=== PATIENT | male | born 1940 | race Caucasian/White ===

== ENCOUNTER 2019-07-14 09:16 | Day surgery (SDC) | payer MEDICARE, BC ==
[~2019-07-14 09:16] MED LIST: Lactated Ringers 1,000 ML IV SCH
[2019-07-14] MEDS ORDERED: Propofol 200 MG/20 ML SDV ONE (11:13)
[2019-07-14] MEDS ORDERED: fentaNYL 100 MCG/2 ML SDV ONE (11:14)
--- NOTE | 2019-07-15 09:15 | OR ---
PREOPERATIVE DIAGNOSIS: History of colon polyps. POSTOPERATIVE DIAGNOSIS: History of colon polyps. PROCEDURE PERFORMED: Colonoscopy with polypectomy. INDICATION: The patient is a 79-year-old male with history of colon polyps, last colonoscopy was about 4 years ago, presents for repeat colonoscopy at this time. PROCEDURE IN DETAIL: This was done in the endoscopy suite. Sedation given per Anesthesia. He was placed in left lateral position. First, a rectal exam was done, was normal. Scope was placed into the rectum and slowly advanced to the rectum, sigmoid, descending, transverse, and ascending colon until the cecum was reached. In the cecum, there was a 1 cm polyp removed by hot loop forceps, sent to pathology. The scope was then withdrawn looking at all the mucosal surfaces on the way out. Remaining exam was normal with the exception of some moderate sigmoid diverticulosis. FINAL DIAGNOSES: Sigmoid diverticulosis and polyp at the cecum. Final pathology pending. BKD: 07/14/2019 11:36:05 MODL: 07/14/2019 17:37:04 /[id number] CC: [facility]
== END 2019-07-14 12:45 | disposition home or self-care (01) ==
LOC: VM.SDS 09:16
PROVIDERS: ATTEND Surgery
DX: Z12.11 Encounter for screening for malignant neoplasm of colon (principal); D12.0 Benign neoplasm of cecum; K57.30 Diverticulosis of large intestine without perforation or abscess without bleeding; I10 Essential (primary) hypertension; E78.5 Hyperlipidemia, unspecified; E11.9 Type 2 diabetes mellitus without complications; M19.90 Unspecified osteoarthritis, unspecified site; F17.220 Nicotine dependence, chewing tobacco, uncomplicated; Z86.010 Personal history of colon polyps; Z79.84 Long term (current) use of oral hypoglycemic drugs; Z79.899 Other long term (current) drug therapy; Z79.82 Long term (current) use of aspirin
CPT/HCPCS: 00811; 45384; 82962; J2704; J3010; J7120

== ENCOUNTER 2020-03-02 12:24 | Inpatient (IN) | payer MEDICARE, BC ==
[~2020-03-02 12:24] MED LIST changes: +Acetaminophen 325 MG Tab PO PRN; -Lactated Ringers 1,000 ML IV SCH; +oxyCODONE 5 MG Tab PO PRN
[2020-03-02] MEDS ORDERED: Furosemide 40 MG Tab PO SCH (16:00)
--- NOTE | 2020-03-02 16:36 | HP ---
Admission history and physical to the swing bed unit at [facility]. CHIEF COMPLAINT: 1. Weakness. 2. Deconditioning. 3. Status post CABG x4. HISTORY OF PRESENT ILLNESS: This 79-year-old male patient was admitted to [facility] in [place] on 02/24/2020 for a diagnosis chest pain. The patient had been experiencing exertional chest pain that day with 5 to 6 episodes that lasted about 15 minutes a piece. The pain was substernal in the left chest with sharp pressure, but no radiation. The workup in the emergency room at [facility] was essentially negative; however, the patient was admitted given multiple risk factors for coronary artery disease. The patient did undergo a coronary angiogram on 02/25/2020. The heart catheterization showed multivessel coronary artery disease, NSTEMI, and high-grade lesion of the RCA. The patient was then referred for a CABG. The patient underwent a 4-vessel CABG on 02/26/[address] Travis Jacob. The patient had a graft; AGUILERA to LAD, SVG to PDA, SVG to obtuse marginal ramus branch, SVG to 1st diagonal. The patient's surgery was uneventful according to old records. The patient did well postoperatively; however, he has remained significantly weak and deconditioned, therefore swing bed was recommended. PAST MEDICAL HISTORY: 1. Type 2 diabetes without long-term use of insulin. 2. Hyperlipidemia associated with type 2 diabetes. 3. Dyslipidemia associated with type 2 diabetes. 4. Non-STEMI. 5. Coronary artery disease involving alutiiq coronary artery of alutiiq heart with angina pectoris. 6. Lumbar disk herniation with radiculopathy. 7. Impotence of organic origin. PAST SURGICAL HISTORY: 1. Back surgery. 2. Colonoscopy. 3. Cystoscopy. 4. TURP. 5. Rotator cuff repair. 6. Lumbar disk surgery. 7. Cardiac catheterization. 8. Coronary artery bypass graft. FAMILY HISTORY: Mother is secondary to Alzheimer disease. Father is secondary to cardiovascular disease. SOCIAL HISTORY: The patient does not drink alcohol. No illegal drug use. The patient has never been a smoker. The patient does use chewing tobacco. ALLERGIES: No known drug allergies. MEDICATIONS: 1. Acetaminophen 650 mg 1 tablet p.o. every 6 hours as needed. 2. Aspirin 81 mg 1 tablet p.o. daily. 3. Atorvastatin 40 mg daily. 4. Cinnamon bark 1000 mg 1 tablet p.o. daily. 5. Senna Plus 2 tablets p.o. daily. 6. Lovenox 40 mg subcu daily. 7. Furosemide 40 mg 1 tablet p.o. twice daily. 8. Metformin 1000 mg 1 tablet p.o. twice daily. 9. Lopressor 25 mg 1 tablet p.o. twice daily. 10.Multivitamin 1 tablet p.o. daily. 11.Oxycodone 5 mg 1 tablet p.o. every 6 hours as needed. 12.Protonix 40 mg 1 tablet p.o. daily. 13.Potassium chloride 20 mEq 1 tablet p.o. daily. 14.Januvia 100 mg 1 tablet p.o. daily. REVIEW OF SYSTEMS: General: Negative. Skin: Negative. Respiratory: Negative. Cardiovascular: Negative. Abdomen: Negative. Neurologic: The patient complains of being very tired and feeling weak. Otherwise, no focal neurological deficit. PHYSICAL EXAMINATION: General Presentation: The patient is alert. The patient is cooperative. The patient does not appear to be in any acute distress. Skin: Surgical incision is clean, dry, and intact; no dressing. Skin is warm and dry. Respiratory: Lungs are clear, but decreased throughout. Cardiovascular: Regular rate and rhythm, no murmur. Abdomen: Obese, bowel sounds are hypoactive x4. Abdomen is nontender. Neurological: The patient is alert. The patient is oriented to person, place, and time. No focal neurological deficit. Vital Signs: Height is 5 feet 10 inches, weight is 217 pounds. Temperature is 99.8, pulse is 77, blood pressure 132/61, respiratory rate 18, oxygen saturation 100% on room air. LABORATORY STUDIES: None. IMAGING STUDIES: None. ASSESSMENT: 1. Coronary artery disease. 2. Status post coronary artery bypass graft x4. 3. Weakness. 4. Deconditioning. 5. Type 2 diabetes without long-term use of insulin. 6. Hypertension associated with type 2 diabetes. 7. Dyslipidemia associated with type 2 diabetes. 8. Obesity. 9. Erectile dysfunction. 10.Lumbar disk disease. PLAN: The patient will be admitted to the swing bed unit at [facility] status post CABG x4 for weakness and deconditioning. The patient will be seen by Physical and Occupational Therapy. Continue with current medications without any changes. The patient is a full code 1. The patient does wish to be transferred to a higher level of care should the need arise. The patient will be on a diabetic diet. The patient will be up ad alessio. I anticipate admission at least 5 to 6 days. This patient was seen and examined by me as an [facility] provider. TB: 03/02/2020 13:06:10 MODL: 03/02/2020 16:31:40 /[id number]
[2020-03-02] MEDS ORDERED: metFORMIN 500 MG Tab PO SCH (18:00)
[2020-03-02] MEDS ORDERED: Enoxaparin 40 MG/0.4 ML Syringe SUBCUT SCH (20:00)
[2020-03-02] MEDS ORDERED: Metoprolol Tartrate 25 MG Tab PO SCH (20:00)
[2020-03-02] MEDS ORDERED: atorvaSTATin 40 MG Tab PO SCH (20:00)
[2020-03-03] MEDS ORDERED: Non-Formulary Medication 1 Each (Cinnamon Bark [Cinnamon] 1,000 MG) PO SCH (08:00)
[2020-03-03] MEDS ORDERED: Potassium Chloride 20 MEQ Tab.ER PO SCH (08:00)
[2020-03-03] MEDS ORDERED: Aspirin 81 MG Tab.EC PO SCH (08:00)
[2020-03-03] MEDS ORDERED: Pantoprazole 40 MG Tab.CR PO SCH (08:00)
[2020-03-03] MEDS ORDERED: Multivitamins with Iron/Calcium/Folic Acid/Minerals Tab PO SCH (08:00)
--- NOTE | 2020-03-03 10:15 | DISCH ---
CHIEF COMPLAINT: Left against medical advice. HISTORY OF PRESENT ILLNESS: A 79-year-old male patient was admitted yesterday to the swing bed unit for weakness and deconditioning, status post CABG x4. This provider was called at 4:45 a.m., 03/03/2020, from the nurse caring for the patient stating that the patient is attempting to leave the facility. I spoke with the patient via telephone and he stated that he is leaving because his room is too hot. Better accommodations were offered to the patient, but he refused. I did make several attempts to convince the patient to stay, but the patient declined. DISPOSITION: Left against medical advice to home. CONSULTATIONS: Physical and Occupational Therapy. DISCHARGE LABORATORY WORK: None. DISCHARGE IMAGING STUDIES: None. DISCHARGE MEDICATIONS: 1. Acetaminophen 650 mg 1 tablet p.o. every 6 hours as needed. 2. Aspirin 81 mg 1 tablet p.o. daily. 3. Atorvastatin 40 mg 1 tablet p.o. daily at bedtime. 4. Furosemide 40 mg 1 tablet p.o. twice daily. 5. Metformin 1000 mg 1 tablet p.o. twice daily. 6. Metoprolol 25 mg 1 tablet p.o. twice daily. 7. Multivitamin 1 tablet p.o. daily. 8. Cinnamon bark 1000 mg 1 tablet p.o. daily. 9. Pantoprazole 40 mg 1 tablet p.o. daily. 10.Potassium chloride 20 mEq 1 tablet p.o. daily. 11.Senna Plus 2 tabs p.o. daily. 12.Januvia 100 mg 1 tablet p.o. daily. HOSPITAL COURSE: The patient remained hemodynamically stable during his short time on swing bed. The patient did not have any chest pain or shortness of breath. The patient did not have any cough or leg swelling. No palpitations. The patient did not have any focal neurological problems. The patient did work with Physical and Occupational Therapy. REVIEW OF SYSTEMS: Unable to obtain secondary to acuity of the patient. PHYSICAL EXAMINATION: Neurological: No focal neurological deficit. The patient is alert. Psychiatric: The patient is agitated. The patient appears to have an isolated psychotic event. DISCHARGE DIAGNOSES: 1. Left against medical advice. 2. Coronary artery disease. 3. Status post CABG x4. 4. Weakness. 5. Deconditioning. 6. Type 2 diabetes without long-term use of insulin. 7. Hyperlipidemia associated with type 2 diabetes. 8. Dyslipidemia associated with type 2 diabetes. 9. Hkm-[id number]-tinievdbw myocardial infarction. 10.Lumbar disk herniation with radiculopathy. 11.Impotence of organic origin. PLAN: Thoroughly and extensively discussed with the patient the need for him to stay on swing bed due to his current medical condition. The patient was consented and the risks and benefits of leaving against medical advice were thoroughly discussed. I discussed with the patient that risks could include, but not limited to, , falls, stroke, rupture of coronary bypass graft, CO, chest wound dehiscence. The patient was very adamant and continued to persist on leaving. AMA form was signed and witnessed by the RN. Please see AMA form for additional information. I will have [facility] contact the patient today to set up a followup visit with his PCP. This patient was examined by me as an [facility] provider. TB: 03/03/2020 08:37:19 MODL: 03/03/2020 10:08:01 /[id number]
== END 2020-03-03 05:15 | disposition left against medical advice (07) | DRG 948 ==
LOC: VM.MS 12:24
PROVIDERS: ADMIT Nurse Practitioner Family; ATTEND Nurse Practitioner Family
DX: R53.1 Weakness (principal); I25.10 Atherosclerotic heart disease of native coronary artery without angina pectoris; E11.9 Type 2 diabetes mellitus without complications; E78.5 Hyperlipidemia, unspecified; M51.16 Intervertebral disc disorders with radiculopathy, lumbar region; N52.9 Male erectile dysfunction, unspecified; Z95.1 Presence of aortocoronary bypass graft; Z79.82 Long term (current) use of aspirin; Z79.899 Other long term (current) drug therapy; E66.9 Obesity, unspecified; I25.2 Old myocardial infarction
CPT/HCPCS: 97161-GP; A9270-GY; J1650

== ENCOUNTER 2024-12-22 09:11 | Day surgery (SDC) | payer MEDICARE, BC ==
[2024-12-22] MEDS: Lidocaine/Prilocaine 2.5-2.5% Crm 5 GM Tube TOP ONE (09:50)
[2024-12-22] MEDS: Lactated Ringers 1,000 ML IV SCH (09:51)
[2024-12-22] MEDS ORDERED: Propofol 200 MG/20 ML SDV ONE (10:25)
[2024-12-22] MEDS ORDERED: fentaNYL 100 MCG/2 ML SDV ONE (10:25)
[2024-12-22] MEDS ORDERED: Midazolam 1 MG/ML 2 ML SDV ONE (10:25)
[2024-12-22] MEDS: Ondansetron 4 MG/2 ML SDV IVPUSH PRN (12:02)
== END 2024-12-22 13:45 | disposition home or self-care (01) ==
LOC: VM.SDS 09:11
PROVIDERS: ATTEND Surgery
DX: Z12.11 Encounter for screening for malignant neoplasm of colon (principal); D12.0 Benign neoplasm of cecum; E11.22 Type 2 diabetes mellitus with diabetic chronic kidney disease; E11.59 Type 2 diabetes mellitus with other circulatory complications; I12.9 Hypertensive chronic kidney disease with stage 1 through stage 4 chronic kidney disease, or unspecified chronic kidney disease; N18.31 Chronic kidney disease, stage 3a; E11.69 Type 2 diabetes mellitus with other specified complication; E78.5 Hyperlipidemia, unspecified; I25.10 Atherosclerotic heart disease of native coronary artery without angina pectoris; Z79.899 Other long term (current) drug therapy; Z86.0101 Personal history of adenomatous and serrated colon polyps
CPT/HCPCS: 82947; 88305; A9270-GY; J2250; J2405; J2704; J3010; J7120